=== PATIENT | female | born 1995 | race Caucasian/White ===

== ENCOUNTER 2019-08-07 09:03 | Emergency (ER) | payer OTHER ==
[~2019-08-07] VITALS: Ht 165.1 cm; Wt 71.0 kg
[2019-08-07 09:14] VITALS: BP 157/74
[2019-08-07] MEDS ORDERED: LIDOCAINE-MPF 1%, 5ML ONE (09:14)
[2019-08-07] MEDS ORDERED: PLEASE ENTER ALLERGIES MC SCH (09:30)
[2019-08-07] MEDS ORDERED: LIDOCAINE-MPF 1%, 5ML INFIL ONE (09:30)
[2019-08-07] MEDS ORDERED: DIPH,PERTUSS(ACELL),TET VAC/PF 0.5 ML IM-VACC ONE ×2 (09:30→10:26)
== END 2019-08-07 10:38 | disposition home or self-care (01) ==
LOC: ED 10:00
DX: S61.215A Laceration without foreign body of left ring finger without damage to nail, initial encounter (principal); X58.XXXA Exposure to other specified factors, initial encounter; Y93.89 Activity, other specified; Y92.89 Other specified places as the place of occurrence of the external cause; Y99.8 Other external cause status
CPT/HCPCS: 12001; 90471; 90715